=== PATIENT | male | born 2005 | race Caucasian/White ===

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

== ENCOUNTER 2025-09-02 17:32 | Emergency (ER) | payer OTHER ==
[2025-09-02 18:13] VITALS: TEMP 98
--- NOTE | 2025-09-02 18:28 | ERPHSYRPT ---
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 visitor states he also has night sweats, Triage Nursing Assessment: pt walked in alert, resp easy, skin w/d/p, has red rash to neck and right axilla, with areas on finger that pt sttes the skin has sloughed off, no drainage noted, has tried antifungal cream with no help Physician History: Patient presents with multiple rashes over the past 2 weeks. He has a erythematous rash at the anterior neck with honey crusted lesions. The rash is pruritic. He also has a rash underneath the right armpit that is circular in nature consistent with ringworm. This rash also is pruritic and also ledesma. Patient also has multiple fingers with raised lesions concerning for contact dermatitis from poison yael that is exquisitely pruritic. Allergies/Adverse Reactions: No Known Drug Allergies Allergy (Verified 09/02/25 17:59) Home Medications: No Reportable Medications [No Reported Medications] 04/02/22 [History] Hx Tetanus, Diphtheria Vaccination/Date Given: No Hx Influenza Vaccination/Date Given: No Hx Pneumococcal Vaccination/Date Given: No Immunizations Up to Date: Yes Travel Risk - International Travel Have you traveled outside of the country in past 3 weeks: No - Emerging Infectious Disease Are you exhibiting symptoms associated with any current EIDs: No - Review of Systems All Other Systems: Reviewed and Negative - Past Medical History Pertinent Past Medical History: No - Past Surgical History Past Surgical History: Yes Neuro Surgical History: No Pertinent History Cardiac: No Pertinent History Respiratory: No Pertinent History Gastrointestinal: No Pertinent History Genitourinary: No Pertinent History Musculoskeletal: No Pertinent History Male Surgical History: No Pertinent History Other Surgical History: had wisdom tooth removed under gas anesthesia - Social History Smoking Status: Never smoker Exposure to second hand smoke: No Drug Use: none - Social Determinants of Health Will the patient participate in the screening: Declined to provide - Nursing Vital Signs Nursing Vital Signs: Initial Vital Signs Temperature 98.0 F 09/02/25 18:12 Pulse Rate 78 09/02/25 18:12 Respiratory Rate 18 09/02/25 18:12 Blood Pressure 134/87 09/02/25 18:12 O2 Sat by Pulse Oximetry 100 09/02/25 18:12 Pain Scale Pain Intensity 5 - Physical Exam General Appearance: no apparent distress SpO2 Interpretation: normal SpO2: 100 O2 Delivery: Room Air Comments: Erythematous, raised rash with honey crusted lesions anterior neck. No active drainage. Circular, erythematous raised lesions right axilla. No active drainage. Erythematous raised lesions along the digits on left hand. No active drainage. - Course Nursing assessment & vital signs reviewed: Yes Ordered Tests: Active Orders 24 hr Category Date Time Status CBC W DIFF Stat Lab 09/02/25 18:30 Completed CMP Stat Lab 09/02/25 18:30 Received Erythrocyte Sedimentation Rate Stat Lab 09/02/25 18:30 Completed Medication Summary Discontinued Medications Generic Name Dose Route Start Last Admin Trade Name Freq PRN Reason Stop Dose Admin Ketoconazole 0.5 gm 09/02/25 18:19 Ketoconazole 15 Gm Tube Cream TOP 09/02/25 18:20 STAT ONE Mupirocin 0.5 gm 09/02/25 18:21 Mupirocin 22 Gm Tube Ointment TP 09/02/25 18:22 STAT ONE Triamcinolone Acetonide 0.5 gm 09/02/25 18:21 Triamcinolone Acetonide 0.1% 15 Gm Cream TP 09/02/25 18:22 STAT ONE Lab/Rad Data: Laboratory Result Diagrams 09/02/25 18:30 Laboratory Results 09/02/25 Range/Units 18:30 WBC 8.2 (4.23-9.07) x10^3/uL RBC 5.34 (4.63-6.08) x10^6/uL Hgb 15.3 (13.7-17.5) g/dL Hct 45.1 (40.1-51.0) % MCV 84.5 (79.0-92.2) fL MCH 28.7 (25.7-32.2) pg MCHC 33.9 (32.3-36.5) g/dL RDW 12.6 (11.6-14.4) % Plt Count 263 (163-337) x10^3/uL MPV 10.6 (9.4-12.4) fL Gran % 59.6 (34.0-67.9) % Immature Gran % (Auto) 0.2 (0.001-0.429) % Nucleat RBC Rel Count 0.0 (0.00-0.2) % Eos # (Auto) 0.34 (0.04-0.54) x10^3/uL Immature Gran # (Auto) 0.02 (0.001-0.031) x10^3u/L Absolute Lymphs (auto) 2.13 (1.32-3.57) x10^3/uL Absolute Monos (auto) 0.74 (0.30-0.82) x10^3/uL Absolute Nucleated RBC 0.00 (0.00-0.012) x10^3u/L Lymphocytes % 26.0 (21.8-53.1) % Monocytes % 9.0 (5.3-12.2) % Eosinophils % 4.2 (0.8-7.0) % Basophils % 1.0 (0.2-1.2) % Absolute Granulocytes 4.88 (1.78-5.38) x10^3/uL Basophils # 0.08 (0.01-0.08) x10^3/uL ESR < 1 (0-15) mm/hr - Progress Progress: unchanged Progress Note: Patient has multiple rashes of different etiology. The rash on the neck consistent with impetigo. Mupirocin ointment prescribed. Right axilla appears to be ringworm so ketoconazole cream applied. Recommend changing to an aluminum free deodorant. Fingers consistent with contact dermatitis from likely poison yael. Triamcinolone cream ordered. Triamcinolone cream can be used on the other rashes as well. I stressed the importance of limiting use to 2 consecutive weeks to prevent skin atrophy. Counseled pt/family regarding: lab results, diagnosis, need for follow-up Medical Desision Making - Diagnostic Testing Diagnostic test were ordered, analyzed, and reviewed by me: Yes Radiological Interpretation: Interpreted by me - Risk of complications The pt has a mod risk of morbidity or mortality based on: Need for prescription drug management - Departure Departure Disposition: Home Clinical Impression: Impetigo, Ringworm, Contact dermatitis Condition: Stable Critical Care Time: No Referrals: ASHLEY JOHNSON MD [Primary Care Provider, [facility]] - Follow up/PCP as directed Instructions: Poison Yael, Poison [place], Poison [place] ([place]), Impetigo - ED discharge instructions, Fungal skin rash - ED discharge instructions
[2025-09-02 18:37] LABS: BASOPHIL % 1.0 % (0.2-1.2); Basophil (Absolute #) 0.08 x10^3/uL (0.01-0.08); Eosinophil (Absolute #) 0.34 x10^3/uL (0.04-0.54); Hematocrit 45.1 % (40.1-51.0); Hemoglobin 15.3 g/dL (13.7-17.5); IMMATURE GRAN # 0.02 x10^3u/L (0.001-0.031); IMMATURE GRAN % 0.2 % (0.001-0.429); Lymphocyte (Absolute #) 2.13 x10^3/uL (1.32-3.57); Mean Corpuscular Hemoglobin 28.7 pg (25.7-32.2); Mean Corpuscular Hgb Concent. 33.9 g/dL (32.3-36.5); Monocyte (Absolute #) 0.74 x10^3/uL (0.30-0.82); NUCLEATED RBC # 0.00 x10^3u/L (0.00-0.012); NUCLEATED RBC % 0.0 % (0.00-0.2); Platelet Count 263 x10^3/uL (163-337); Red Blood Count 5.34 x10^6/uL (4.63-6.08); White Blood Count 8.2 x10^3/uL (4.23-9.07)
[2025-09-02 18:50] LABS: Calcium 9.6 mg/dL (8.4-10.2); Carbon Dioxide 28.0 mmol/L (22-30); Creatinine 1 1.01 mg/dL (0.66-1.25); EST GLOMERULAR FILTRATION RATE 107.8 ML/MIN; Glucose 61.0 mg/dL (74-106); Potassium 4.1 mmol/L (3.5-5.1); SGOT/AST 24.0 U/L (17-59); SGPT/ALT 16.0 U/L (0-50); Total Protein 8.2 g/dL (6.3-8.2)
[2025-09-02] MEDS: KENALOG 0.1% CREAM 15 GM TP ONE (18:50)
[2025-09-02 19:16] VITALS: BP 131/80; O2SAT 99
[2025-09-02 19:18] VITALS: PULSE 64; RESP 20
[2025-09-02] MEDS: Bactroban OINTMENT TP ONE (19:18)
[2025-09-02] MEDS: Nizoral CREAM TOP ONE (19:18)
== END 2025-09-02 19:22 | disposition home or self-care (01) ==
LOC: ED 17:32
DX: L01.00 Impetigo, unspecified (principal); B35.4 Tinea corporis; L24.7 Irritant contact dermatitis due to plants, except food